=== PATIENT | male | born 1990 ===

== ENCOUNTER 2019-04-04 00:14 | Emergency (ER) | payer SELFPAY ==
--- NOTE | 2019-04-04 00:43 | Emergency Department Report ---
HPI - General Chief Complaint: Allergic Reaction Time Seen by Provider: 04/04/19 00:38 - HPI HPI: Room 3 The patient is a 28-year-old male presenting with a chief complaint of allergic reaction. Patient states just prior to arrival he felt as though something bit him on his back. The patient states he then began to feel hot and developed diffuse itching, ears ringing and feel as though he had nasal congestion. Patient denies shortness of breath. The patient took one Benadryl 25 mg just prior to arrival. The patient states she had a similar episode in the past after being stung by a bee Location: [See above] Duration: [See above] Quality: [See above] Severity: [See above] Modifying factors: [see above] Context: [see above] Mode of transportation: [not driving] ED Past Medical Hx - Past Medical History Previous Medical History?: No - Surgical History Past Surgical History?: No - Family History Family history: no significant - Social History Smoking Status: Current Some Day Smoker Substance Use Type: Alcohol (occasional) - Medications Home Medications: Home Medications Medication Instructions Recorded Confirmed Last Taken Type EPINEPHrine [Epipen 2-Vasquez] 0.3 mg IM ONCE PRN #0.6 ml 04/04/19 Unknown Rx Famotidine [Pepcid] 20 mg PO BID #6 tablet 04/04/19 Unknown Rx diphenhydrAMINE [Benadryl CAP] 50 mg PO Q6HR #24 capsule 04/04/19 Unknown Rx predniSONE [Deltasone] 60 mg PO QDAY #9 tab 04/04/19 Unknown Rx ED Review of Systems ROS: Stated complaint: ALLERGIC REACTION Other details as noted in HPI Constitutional: no symptoms reported Eyes: denies: eye pain ENT: congestion Respiratory: denies: shortness of breath Cardiovascular: denies: chest pain Endocrine: no symptoms reported Gastrointestinal: denies: abdominal pain Genitourinary: denies: dysuria Musculoskeletal: denies: back pain Skin: rash, pruritus Neurological: denies: headache Physical Exam - Physical Exam Vital Signs: Vital Signs 04/04/19 00:26 Temperature 98.1 F Pulse Rate 130 H Respiratory 18 Rate Blood Pressure 160/84 O2 Sat by Pulse 95 Oximetry Physical Exam: GENERAL: The patient is well-developed well-nourished male lying on stretcher not appearing to be in acute distress. [] HEENT: Normocephalic. Atraumatic. Extraocular motions are intact. Patient has moist mucous membranes. NECK: Supple. No stridor CHEST/LUNGS: Clear to auscultation. There is no respiratory distress noted. HEART/CARDIOVASCULAR: Regular. There is no tachycardia. There is no gallop rub or murmur. ABDOMEN: Abdomen is soft, nontender. Patient has normal bowel sounds. There is no abdominal distention. SKIN: Diffuse urticaria over the back and upper extremities. There is no diaphoresis. NEURO: The patient is awake, alert, and oriented. The patient is cooperative. The patient has normal speech MUSCULOSKELETAL: There is no evidence of acute injury. ED Course Vital Signs 04/04/19 00:26 Temperature 98.1 F Pulse Rate 130 H Respiratory 18 Rate Blood Pressure 160/84 O2 Sat by Pulse 95 Oximetry - Reevaluation(s) Reevaluation #1: 04/04/19 01:49 Patient states he feels improved. Asymptomatic ED Medical Decision Making - Differential Diagnosis acute allergic reaction Critical care attestation.: If time is entered above; I have spent that time in minutes in the direct care of this critically ill patient, excluding procedure time. ED Disposition Clinical Impression: Acute allergic reaction Disposition: DC-01 TO HOME OR SELFCARE Is pt being admited?: No Does the pt Need Aspirin: No Condition: Stable Instructions: Urticaria (ED), Anaphylaxis (ED) Additional Instructions: Return to the emergency department immediately should you develop worsening symptoms, fever, inability to tolerate food or liquid or any other concerns. Prescriptions: diphenhydrAMINE [Benadryl CAP] 50 mg PO Q6HR #24 capsule predniSONE [Deltasone] 60 mg PO QDAY #9 tab EPINEPHrine [Epipen 2-Vasquez] 0.3 mg IM ONCE PRN #0.6 ml PRN Reason: Anaphylaxis Famotidine [Pepcid] 20 mg PO BID #6 tablet Referrals: CHELSEA KINNEY MD [Staff Physician] - 3-5 Days (Dr. Kinney as an seafood specialist. Please follow up with her for further evaluation) Time of Disposition: 01:51
[2019-04-04] MEDS ORDERED: SOLU-Medrol IV ONE (00:44)
[2019-04-04] MEDS ORDERED: PEPCID IV ONE (00:44)
[2019-04-04] MEDS ORDERED: BENADRYL IV ONE (00:44)
--- NOTE | 2019-04-04 03:17 | XRay Report ---
PROCEDURE: XR NECK SOFT TISSUE TECHNIQUE: Soft tissue neck radiographs, 2 views, including AP and lateral. HISTORY: allergic reaction COMPARISONS: None . FINDINGS: Bone mineralization: Normal . Alignment: Normal . Soft tissues: Epiglottis and hypopharyngeal soft tissues normal . Foreign bodies: None . IMPRESSION: Normal Examination . This document is electronically signed by Darcy Rodney DO., April 04 2019 03:16:02 AM ET
[2019-04-04 06:42] VITALS: BP 152/76
== END 2019-04-04 03:10 | disposition home or self-care (01) ==
LOC: ED 00:14
DX: T78.40XA Allergy, unspecified, initial encounter (principal); F17.200 Nicotine dependence, unspecified, uncomplicated; X58.XXXA Exposure to other specified factors, initial encounter
CPT/HCPCS: 70360; 94640; 96374; 96375; 99283; J1200; J2930